=== PATIENT | male | born 1965 | race Hispanic/Latino ===

== ENCOUNTER 2018-03-14 06:26 | Day surgery (SDC) | payer SELFPAY ==
[2018-03-14 07:08] LABS: #Basophils 0.1 thou/uL (0.0-0.2); #Eosinphils 0.2 thou/uL (0.0-0.7); #Lymphocytes 1.3 thou/uL (1.20-3.40); #Monocytes 0.6 thou/uL (0.11-0.59); #Neutrophils 4.3 thou/uL (1.40-6.50); %Basophils 0.9 % (0.0-1.0); %Eosinophils 2.8 % (0.0-10.0); %Lymphocytes 20.6 % (21.0-51.0); %Monocytes 8.5 % (0.0-10.0); %Neutrophils 67.2 % (42.0-75.0); Hemoglobin 15.5 g/dL (14.0-18.0); Mean Corpuscular HGB CONC 34.1 g/dL (32.0-36.0); Mean Corpuscular Hemoglobin 27.8 pg (27.0-31.0); Mean Corpuscular Volume 81.6 fL (78.0-98.0); Mean Platelet Volume 7.5 fL (7.4-10.4); Platelet Count 209 thou/uL (130-400); RBC Distribution Width 12.9 % (11.5-14.5); Red Blood Cell (RBC) Count 5.59 mill/uL (4.70-6.10); White Blood Cell (WBC) Count 6.4 thou/uL (4.8-10.8)
[2018-03-14] MEDS ORDERED: Ondansetron HCl/PF 4 MG/2 ML Vial ONE (07:24)
[2018-03-14 07:35] LABS: ALT (SGPT) 31 U/L (8-55); AST (SGOT) 29 U/L (5-34); Albumin 4.2 g/dL (3.5-5.0); Alkaline Phosphatase 110 U/L (40-150); Anion Gap 11 mmol/L (10-20); BUN (Urea Nitrogen) 22 mg/dL (8.9-20.6); Bilirubin, Total 0.6 mg/dL (0.2-1.2); Calc. Creatinine Clearance 0 mL/min (70-130); Calcium 9.5 mg/dL (7.8-10.44); Carbon Dioxide 27 mmol/L (22-29); Chloride 102 mmol/L (98-107); Estimated GFR-MDRD 85; Globulin 3.7 g/dL (2.4-3.5); Glucose 114 mg/dL (70-105); Potassium 3.7 mmol/L (3.5-5.1); Protein, Total 7.9 g/dL (6.0-8.3); Sodium 136 mmol/L (136-145)
[2018-03-14] MEDS ORDERED: Dicyclomine 20 MG TAB ONE (08:48)
[2018-03-14] MEDS ORDERED: Lidocaine Viscous Sol 2% 15 ml UD Cup ONE (08:48)
[2018-03-14] MEDS ORDERED: Mag-Al 1200 mg/1200 mg/30 ML UDCUP ONE (08:48)
[2018-03-14] MEDS ORDERED: Pantoprazole 40 MG VIAL ONE (08:48)
--- NOTE | 2018-03-14 08:53 | ULT ---
RIGHT UPPER QUADRANT ULTRASOUND: HISTORY: A 52-year-old male with a history of right upper quadrant pain. FINDINGS: There is coarse increased liver echogenicity, evidence for some fatty change. Stones re noted within the gallbladder, particularly 1 larger stone measuring 1.5 cm in the neck of the gallbladder. Minim al pericholecystic fluid. No overt gallbladder wall thickening. Visualized pancreas and right kidne y are unremarkable. Common bile duct is 0.6 cm without significant intrahepatic ductal dilatation. IMPRESSION: Cholelithiasis with at least 1 large gallstone in the neck of the gallbladder with minimal pericholec ystic fluid. The common bile duct is 0.6 cm without significant intrahepatic ductal dilatation. Coa rse increased liver echogenicity, evidence for fatty change or other nonspecific hepatic parenchymal process. POS: [facility]
[2018-03-14] MEDS ORDERED: Fentanyl 100 MCG/2 ML VIAL ONE ×6 (09:24→15:43)
--- NOTE | 2018-03-14 10:35 | CT ---
RIGHT UPPER QUADRANT PAIN: HISTORY: A 52-year-old male. TECHNIQUE: Contrast enhanced CT images of the abdomen and pelvis are obtained after the administration of IV con trast. Unfortunately, oral contrast was not given. This does decrease the sensitivity for detection of pathology. FINDINGS: The lung bases are unremarkable. No evidence of free intraperitoneal air is seen. The liver and spleen are unremarkable. The pancreas is unremarkable. there is an approximately 1.8 cm gallstone in the gallbladder neck. No evidence of intrahepatic bili buck dilatation is seen. The adrenal glands are unremarkable. The kidneys are unremarkable with no evidence of renal masses. No evidence of hydroureteronephrosis is seen. No dilated loops of small bowel seen. A normal appendix is visualized. The colon is unremarkable. No evidence of periaortic lymphadenopathy is seen. No evidence of free intraperitoneal air or fluid seen. IMPRESSION: 1. Large gallstone in the gallbladder neck. 2. No definite evidence of gallbladder wall thickening or surrounding pericholecystic fluid seen. POS: [facility]
[2018-03-14] MEDS ORDERED: ISOVUE-370 76%-LOCM 1 ML ONE (11:16)
[2018-03-14] MEDS ORDERED: Bupivacaine/Epinephrine 0.25% 30 ML VIAL ONE ×2 (12:10→13:03)
--- NOTE | 2018-03-14 12:19 | HP ---
DATE OF ADMISSION: 03/14/2018 HISTORY OF PRESENT ILLNESS: Mr. Hidalgo is a 52-year-old man who presented to [facility] with recurrent epigastric right upper quadrant abdominal pain which woke him up at 5 o'clock th is morning. The pain was described as sharp, associated with multiple episodes of nausea and 2 bouts of nonbilious emesis. He has experienced similar pain patterns multiple times over the last month a nd half. In fact, he was seen in the emergency department last month with a similar occurrence at that time wo cora up at approximately 0300 hours. The pain was exacerbated by eating dinner last night, consisting of a beef stew. He denies any diarrhea or unexplained weight loss. He admits to some bloating and frequent flatulence over the last 2 weeks. PAST MEDICAL HISTORY: Pertinent for essential hypertension. PAST SURGICAL HISTORY: Denies any previous surgeries. SOCIAL HISTORY: He lives independently. 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 He denies an y cigarette smoking, ethanol or illicit drug abuse. FAMILY HISTORY: Notable for essential hypertension and diabetes mellitus in his elderly mother. He denies any family history of heart disease or cancer. PREHOSPITAL MEDICATIONS: Includes lisinopril/hydrochlorothiazide 20/12.5 mg 1 p.o. daily, and carved ilol 3.125 mg p.o. daily. ALLERGIES: The patient denies any known drug allergies. REVIEW OF SYSTEMS: A 10-point review of systems is essentially unremarkable except for as stated in past medical history and chief complaint. PHYSICAL EXAMINATION: GENERAL: This reveals a 52-year-old normally developed man who is otherwise coherent and interactive and appears stated age. The patient is alert and oriented x3, appears to be in moderate acute distr ess secondary to severe right upper quadrant abdominal pain. VITAL SIGNS: Includes blood pressure 182/109, pulse 61, respiratory rate 20, temperature 98 degrees Fahrenheit, oxygen saturation is 96% on room air. His pain was rated at 8/10 having been given intra venous analgesics prior to my arrival. HEENT: Reveals normocephalic and atraumatic. Pupils are equal, round, and reactive to light and acc ommodation. Extraocular muscles are intact bilaterally. He has no sclerae icterus present. Oral mu cosa is pink and moist. No lesions are noted. NECK: Supple. No palpable lymphadenopathy or thyromegaly present. CARDIOVASCULAR: Reveals regular rate and rhythm, no murmurs or gallops auscultated. LUNGS: Clear to auscultation bilaterally. Breathing regular and unlabored. ABDOMEN: Soft and obese. He has right upper quadrant abdominal tenderness to palpation with a posit jet Lucio's sign. Liver and spleen are otherwise nonpalpable below costal margins. EXTREMITIES: Reveal 2+ radial and pedal pulses bilaterally. No ankle edema is present. NEUROLOGIC: Reveals no focal deficits present. PERTINENT LABORATORY DATA: Today includes a CBC with 6400 white blood cells, hemoglobin and hematocr it 15.5 and 45.6 respectively. Platelet count is 209,000. Metabolic profile: Sodium 136, potassium 3.7, chloride is 102, bicarbonate is 27, BUN 22, creatinine 0.94, glucose 114, total bilirubin 0.6, AST and ALT normal at 29 and 31 respectively. Serum lipase is normal at 55. I have personally reviewed the abdominal ultrasound, which is remarkable for a distended gallbladder with small pericholecystic fluid. There is also an impacted gallstone at the gallbladder neck. The stone measures 1.5 cm in diameter. Common bile duct is normal for this patient's age at [address] scan of the abdomen and pelvis is unremarkable for any acute pathology except for a large gallston e in the gallbladder neck. IMPRESSION: Acute cholecystitis with cholelithiasis. PLAN: Laparoscopic cholecystectomy. I have advised the patient of the above findings and my recomme ndation. I also offered him an alternative option of a bland diet and analgesics. The patient decli judah this as he is unwilling to experience this sort of pain, which has debilitated him over the last several days. I have advised the patient of the risk and benefits of the proposed surgery. Risks include, but not limited to bleeding, infection, injury to bile duct or surrounding structures. This information give n to the patient in the presence of his adult sister. They both indicated understanding of informati on given. I have answered his questions. The patient has granted consent for this admission and kristal gical intervention.
[2018-03-14] MEDS ORDERED: PROPOFOL 200 MG/20 ML VIAL ONE (14:31)
[2018-03-14] MEDS ORDERED: Succinylcholine Chloride 20 MG/ML 10 ml SYRINGE FS ONE (14:31)
[2018-03-14] MEDS ORDERED: Lidocaine 1% PF 5 ML VIAL ONE (14:31)
[2018-03-14] MEDS ORDERED: ePHEDrine/0.9% NaCl/PF SYRINGE 50 mg/10 ml ONE (14:31)
[2018-03-14] MEDS ORDERED: Ketorolac Tromethamine 30 MG/ML VIAL ONE (14:31)
[2018-03-14] MEDS ORDERED: PHENYLEPHRINE-NS 100 MCG/ML 10 ML SYRINGE ONE (14:31)
[2018-03-14] MEDS ORDERED: Metoclopramide HCl 10 MG/2 ML VIAL ONE (14:31)
[2018-03-14] MEDS ORDERED: Glycopyrrolate 0.2 MG/ML 5 ML SYRINGE ONE (14:31)
[2018-03-14] MEDS ORDERED: Promethazine HCl 25 MG/ML VIAL SLOW IVP PRN ×2 (15:15→15:17)
[2018-03-14] MEDS ORDERED: Meperidine HCl/PF 25 MG/ML VIAL SLOW IVP PRN ×2 (15:15→15:17)
[2018-03-14] MEDS ORDERED: Ketorolac Tromethamine 30 MG/ML VIAL IVP PRN ×2 (15:15→15:17)
[2018-03-14] MEDS ORDERED: Promethazine HCl 25 MG/ML VIAL IM PRN ×2 (15:15→15:17)
[2018-03-14] MEDS ORDERED: HYDROmorphone 2 MG/ML VIAL SLOW IVP PRN ×2 (15:15→15:17)
[2018-03-14] MEDS ORDERED: Ondansetron HCl/PF 4 MG/2 ML Vial IVP PRN ×2 (15:15→15:17)
--- NOTE | 2018-03-14 16:22 | OP ---
DATE OF OPERATION: 03/14/2018 PREOPERATIVE DIAGNOSES: Acute cholecystitis with cholelithiasis. POSTOPERATIVE DIAGNOSES: Acute cholecystitis with cholelithiasis. SURGERY PERFORMED: Laparoscopic cholecystectomy. SURGEON: Demetrio Alexander DO ANESTHESIA: General endotracheal. ESTIMATED BLOOD LOSS: 10 mL FLUIDS GIVEN: 1200 mL crystalloids. SPONGE AND INSTRUMENT COUNT: Certified as correct x2. COMPLICATIONS: None apparent to operation. INDICATIONS FOR OPERATION: A 52-year-old man presented with recurrent epigastric to right u pper quadrant abdominal pain. Clinical and radiographic examination was consistent with acute cholec ystitis with cholelithiasis for which patient was brought to the operating room for cholecystectomy. Findings are consistent with dilated gallbladder in the usual anatomic location, partially encased by omental adhesions. DESCRIPTION OF PROCEDURE: Informed consent obtained from the patient who was brought to the operatin g room and placed in supine position. Following general anesthesia, the abdomen is sterilely prepped and draped in usual fashion. The skin below the umbilicus was infiltrated with 0.25% Marcaine with epinephrine. A small curvilinear infraumbilical incision was made using an [address] alk was grasped with Ynes and elevated. Veress needle was inserted through the incision and placed in the peritoneal cavity through which the abdomen was insufflated with 3 liters of CO2 gas. Intraa bdominal pressure noted at 2 mmHg. Following abdominal insufflation, Veress needle was removed and r eplaced with a 5 mm trocar introduced using the Visiport under laparoscopy. Laparoscopy confirmed pr oper placement of the port, no injuries to underlying structures. An additional laparoscopy reveals gallbladder in the usual anatomic location partially encased by omental adhesions. Under direct lapa roscopy, a 12 mm epigastric and two 5 mm right lateral subcostal ports were placed after the overlyin g skin were infiltrated with 0.25% Marcaine with epinephrine and appropriate incisions made. The pat ient was then placed in a reverse Trendelenburg position, rotated to his left. I introduced [place] dissector with cautery, using this to take down omental adhesions. The gallbladder itself was marke dly tense, difficult to grasp with a Prestige grasper. I then decided to decompress the gallbladder. Using Endo suction catheter with cautery, a prominent cholecystotomy was done at the dome of the ga llbladder evacuating excess bile. Prestige grasper was then introduced through the right lateral sub costal port grasping the fundus of the gallbladder, which was elevated cephalad. Omental adhesions w ere taken down for the remainder of the gallbladder. A second Prestige grasper introduced through th e right medial subcostal port grasping the Porras's pouch, which was retracted laterally. Cystic du ct was carefully dissected free from surrounding structures at the triangle of Calot. The duct is di vided between clips applying two clips proximally and one clip at the junction of the cystic duct and gallbladder. The cystic artery was dissected free from surrounding structures and divided between c lips in a similar fashion. Gallbladder surface removed from the liver bed using cautery with good he mostasis. Gallbladder is delivered of the abdominal cavity using an EndoCatch. Operative site was i rrigated with saline and good hemostasis noted in place. All clips remain in place, no bile stains p resent. Finding no other pathology, laparoscopy was terminated. Fascia of the epigastric port was c losed using 0 Vicryl suture and Endo closure device under laparoscopy. Abdomen was desufflated. All ports and instruments removed and accounted for. Skin incisions were closed using 4-0 Monocryl sutu re in subcuticular fashion. Dermabond was applied over the incisional closure. The patient tolerate d the operation without any apparent complication and was returned to recovery room in satisfactory c ondition.
[2018-03-14] MEDS ORDERED: HYDROcodone/Acetaminophen 5/325 mg Tablet ONE (16:40)
== END 2018-03-14 17:43 | disposition home or self-care (01) ==
LOC: ERS 06:26
PROVIDERS: ATTEND Surgery
PROC: 0FT44ZZ Resection of Gallbladder, Percutaneous Endoscopic Approach (ICD-10-PCS; principal; 2018-03-14)
DX: K81.2 Acute cholecystitis with chronic cholecystitis (principal); I10 Essential (primary) hypertension; Z79.899 Other long term (current) drug therapy
CPT/HCPCS: 74177; 76705; 80053; 83690; 85025; 88304; 93005; 93010; 96374; C9113; J0131; J1885; J2001; J2270; J2405; J2704; J2765; J3010

== ENCOUNTER 2021-01-23 23:42 | Inpatient (IN) | payer SELFPAY ==
[2021-01-24] MEDS ORDERED: Ondansetron PF 4 MG/2 ML Vial IVP PRN (03:12)
[2021-01-24] MEDS ORDERED: Senokot S 8.6-50 MG TAB PO PRN (03:12)
[2021-01-24] MEDS ORDERED: Acetaminophen 325 MG TAB PO PRN (03:12)
[2021-01-24 03:39] VITALS: BMI 34.9
[2021-01-24] MEDS ORDERED: Enoxaparin Sodium 40 MG/0.4 ML SYRINGE SC SCH (04:00)
[2021-01-24] MEDS: cefTRIAXone\\ROCEPHIN 2 GM in Sodium Chloride 0.9% 100 ML IVPB SCH (04:50)
[2021-01-24] MEDS: Azithromycin 1,000 MG, Admixture Fee 1 EACH in Sodium Chloride 0.9% 500 ML IVPB SCH (04:52)
[2021-01-24 06:05] LABS: #Lymphocytes 0.5 thou/uL (1.20-3.40); #Monocytes 0.3 thou/uL (0.11-0.59); #Neutrophils 4.7 thou/uL (1.40-6.50); %Basophils 0.6 % (0.0-1.0); %Eosinophils 0.1 % (0.0-10.0); %Lymphocytes 8.5 % (21.0-51.0); %Monocytes 6.1 % (0.0-10.0); %Neutrophils 84.8 % (42.0-75.0); Hemoglobin 15.7 g/dL (14.0-18.0); Mean Corpuscular HGB CONC 34.1 g/dL (32.0-36.0); Mean Corpuscular Hemoglobin 28.7 pg (27.0-31.0); Mean Corpuscular Volume 84.3 fL (78.0-98.0); Mean Platelet Volume 8.2 fL (7.4-10.4); Platelet Count 136 thou/uL (130-400); RBC Distribution Width 13.2 % (11.5-14.5); Red Blood Cell (RBC) Count 5.46 mill/uL (4.70-6.10); White Blood Cell (WBC) Count 5.6 thou/uL (4.8-10.8)
[2021-01-24 06:09] LABS: Hemoglobin A1c 5.6 % (4.0-6.0)
[2021-01-24 06:29] LABS: Troponin I Less than 0.010 ng/mL (< 0.028)
[2021-01-24] MEDS ORDERED: Albuterol Sulfate 1.25 MG/3 ML NEB NEB SCH (06:30)
[2021-01-24 06:31] LABS: ALT (SGPT) 27 U/L (8-55); AST (SGOT) 25 U/L (5-34); Albumin 3.5 g/dL (3.5-5.0); Alkaline Phosphatase 97 U/L (40-110); Anion Gap 12 mmol/L (10-20); BUN (Urea Nitrogen) 26 mg/dL (8.4-25.7); Bilirubin, Total 0.6 mg/dL (0.2-1.2); Calc. Creatinine Clearance 131 mL/min (70-130); Calcium 8.8 mg/dL (7.8-10.44); Carbon Dioxide 25 mmol/L (22-29); Chloride 103 mmol/L (98-107); Globulin 3.6 g/dL (2.4-3.5); Glucose 162 mg/dL (70-105); Potassium 4.6 mmol/L (3.5-5.1); Protein, Total 7.1 g/dL (6.0-8.3); Sodium 135 mmol/L (136-145)
[2021-01-24] MEDS: Zinc Sulfate 220 MG CAP PO SCH (08:19)
[2021-01-24] MEDS: Ascorbic Acid 500 mg Chewable Tablet PO SCH (08:19)
[2021-01-24] MEDS: Dexamethasone 4 mg/ml Vial SLOW IVP SCH (08:19)
[2021-01-24] MEDS: Albuterol 200 PUFF (6.7GM INHALER) INH SCH ×5 (08:20→22:55)
[2021-01-24] MEDS ORDERED: Ergocalciferol 1.25 MG(50,000 UNITS) CAP PO SCH (09:00)
[2021-01-24] MEDS: Guaifenesin DM 100-10/5 ML UDCUP PO PRN (20:40)
[2021-01-24] MEDS: Melatonin 3 MG TAB PO PRN (23:40)
[2021-01-25] MEDS: Albuterol 200 PUFF (6.7GM INHALER) INH SCH ×6 (02:28→22:35)
[2021-01-25] MEDS: cefTRIAXone\\ROCEPHIN 2 GM in Sodium Chloride 0.9% 100 ML IVPB SCH (03:29)
[2021-01-25] MEDS: Azithromycin 1,000 MG, Admixture Fee 1 EACH in Sodium Chloride 0.9% 500 ML IVPB SCH (04:27)
[2021-01-25 08:09] LABS: #Basophils 0.1 thou/uL (0.0-0.2); #Lymphocytes 0.6 thou/uL (1.20-3.40); #Monocytes 0.7 thou/uL (0.11-0.59); #Neutrophils 7.9 thou/uL (1.40-6.50); %Basophils 1.2 % (0.0-1.0); %Lymphocytes 6.7 % (21.0-51.0); %Monocytes 7.6 % (0.0-10.0); %Neutrophils 84.5 % (42.0-75.0); Hemoglobin 14.3 g/dL (14.0-18.0); Mean Corpuscular HGB CONC 33.8 g/dL (32.0-36.0); Mean Corpuscular Hemoglobin 28.6 pg (27.0-31.0); Mean Corpuscular Volume 84.5 fL (78.0-98.0); Mean Platelet Volume 8.1 fL (7.4-10.4); Platelet Count 167 thou/uL (130-400); RBC Distribution Width 12.9 % (11.5-14.5); Red Blood Cell (RBC) Count 4.99 mill/uL (4.70-6.10); White Blood Cell (WBC) Count 9.3 thou/uL (4.8-10.8)
[2021-01-25 08:28] LABS: Anion Gap 11 mmol/L (10-20); BUN (Urea Nitrogen) 26 mg/dL (8.4-25.7); Calc. Creatinine Clearance 142 mL/min (70-130); Calcium 8.4 mg/dL (7.8-10.44); Carbon Dioxide 24 mmol/L (22-29); Chloride 104 mmol/L (98-107); Glucose 133 mg/dL (70-105); Potassium 4.8 mmol/L (3.5-5.1); Sodium 134 mmol/L (136-145)
[2021-01-25] MEDS: Dexamethasone 4 mg/ml Vial SLOW IVP SCH (08:36)
[2021-01-25] MEDS: Enoxaparin Sodium 40 MG/0.4 ML SYRINGE SC SCH (08:36)
[2021-01-25] MEDS: Ascorbic Acid 500 mg Chewable Tablet PO SCH (08:36)
[2021-01-25] MEDS: Zinc Sulfate 220 MG CAP PO SCH (08:36)
[2021-01-25] MEDS ORDERED: Cepastat Lozenges 1 LOZ PO PRN (11:19)
[2021-01-25] MEDS ORDERED: Cepastat Lozenges 1 LOZ PO SCH (11:30)
[2021-01-25] MEDS: Guaifenesin DM 100-10/5 ML UDCUP PO PRN (21:17)
[2021-01-25] MEDS: Melatonin 3 MG TAB PO PRN (21:17)
[2021-01-26] MEDS: cefTRIAXone\\ROCEPHIN 2 GM in Sodium Chloride 0.9% 100 ML IVPB SCH (03:23)
[2021-01-26] MEDS: Albuterol 200 PUFF (6.7GM INHALER) INH SCH ×3 (03:35→10:15)
[2021-01-26] MEDS: Guaifenesin DM 100-10/5 ML UDCUP PO PRN (04:45)
[2021-01-26] MEDS: Azithromycin 1,000 MG, Admixture Fee 1 EACH in Sodium Chloride 0.9% 500 ML IVPB SCH (04:46)
[2021-01-26 06:28] LABS: #Lymphocytes 0.8 thou/uL (1.20-3.40); #Monocytes 0.7 thou/uL (0.11-0.59); #Neutrophils 8.2 thou/uL (1.40-6.50); %Basophils 0.1 % (0.0-1.0); %Lymphocytes 8.5 % (21.0-51.0); %Monocytes 7.3 % (0.0-10.0); %Neutrophils 84.1 % (42.0-75.0); Hemoglobin 14.4 g/dL (14.0-18.0); Mean Corpuscular HGB CONC 34.2 g/dL (32.0-36.0); Mean Corpuscular Hemoglobin 29.1 pg (27.0-31.0); Mean Corpuscular Volume 85.1 fL (78.0-98.0); Mean Platelet Volume 8.5 fL (7.4-10.4); Platelet Count 152 thou/uL (130-400); RBC Distribution Width 13.1 % (11.5-14.5); Red Blood Cell (RBC) Count 4.97 mill/uL (4.70-6.10); White Blood Cell (WBC) Count 9.8 thou/uL (4.8-10.8)
[2021-01-26 06:48] LABS: Anion Gap 10 mmol/L (10-20); BUN (Urea Nitrogen) 20 mg/dL (8.4-25.7); Calc. Creatinine Clearance 146 mL/min (70-130); Calcium 8.1 mg/dL (7.8-10.44); Carbon Dioxide 28 mmol/L (22-29); Chloride 104 mmol/L (98-107); Glucose 100 mg/dL (70-105); Potassium 4.9 mmol/L (3.5-5.1); Sodium 137 mmol/L (136-145)
[2021-01-26 07:29] VITALS: BP 135/81; TEMP 98.4
[2021-01-26] MEDS: Zinc Sulfate 220 MG CAP PO SCH (08:18)
[2021-01-26] MEDS: Ascorbic Acid 500 mg Chewable Tablet PO SCH (08:18)
[2021-01-26] MEDS: Dexamethasone 4 mg/ml Vial SLOW IVP SCH (08:19)
[2021-01-26] MEDS: Enoxaparin Sodium 40 MG/0.4 ML SYRINGE SC SCH (11:26)
== END 2021-01-26 11:37 | disposition home or self-care (01) | DRG 177 ==
LOC: T4-B 23:42 → OBSVTOIN 23:42
PROVIDERS: ADMIT Internal Medicine; ATTEND Internal Medicine
PROC: 8E0ZXY6 Isolation (ICD-10-PCS; principal; 2021-01-23)
DX: U07.1 COVID-19 (principal); J12.82 Pneumonia due to coronavirus disease 2019; J96.01 Acute respiratory failure with hypoxia; E87.1 Hypo-osmolality and hyponatremia; R73.9 Hyperglycemia, unspecified
CPT/HCPCS: 36415; 36416; 80048; 80053; 82728; 83036; 84484; 85025; 85379; 86140; J0456; J0696; J1100; J1650; J3490; J7030

== ENCOUNTER 2021-01-29 14:55 | Emergency (ER) | payer SELFPAY | END 2021-01-29 16:30 | disposition home or self-care (01) | LOC: ERS 14:55 | DX: R06.02 Shortness of breath (principal); R05 Cough; B94.8 Sequelae of other specified infectious and parasitic diseases; I10 Essential (primary) hypertension | CPT/HCPCS: 99283 ==